=== PATIENT | female | born 1975 | race Caucasian/White ===

== ENCOUNTER 2021-09-03 03:13 | Emergency (ER) | payer BC ==
[2021-09-03] MEDS ORDERED: DEXAMETHASONE SOD PHOSPHATE 10 MG/1 ML VIAL ONE (03:26)
[2021-09-03] MEDS ORDERED: DEXAMETHASONE SOD PHOSPHATE 10 MG/1 ML VIAL IM ONE (03:35)
[2021-09-03 03:47] VITALS: BP 124/84; PULSE 71; TEMP 98.9; BMI 29.1
== END 2021-09-03 03:55 | disposition home or self-care (01) ==
LOC: JER 03:13
PROC: 3E023GC Introduction of Other Therapeutic Substance into Muscle, Percutaneous Approach (ICD-10-PCS; principal; 2021-09-03)
DX: T78.40XA Allergy, unspecified, initial encounter (principal)
CPT/HCPCS: 99284-25; J1100